=== PATIENT | female | born 1940 | race Caucasian/White ===

== ENCOUNTER 2016-10-13 07:37 | Observation (INO) | payer OTHER, SELFPAY ==
[2016-10-13 07:43] VITALS: TEMP 97; O2SAT 97; BMI 29.7
[2016-10-13 08:23] VITALS: BP 201/87
--- NOTE | 2016-10-13 08:23 | ED PDOC ---
HPI: General Adult Time Seen by Provider: 10/13/16 08:19 Chief Complaint (Nursing): Abdominal Pain Chief Complaint (Provider): abdominal pain History Per: Patient History/Exam Limitations: no limitations Additional Complaint(s): 76yo female comes to the ED with daughter for complaint of diffuse abdominal pain for 3 days. No nausea, vomit, diarrhea, changes in bowel movements, urinary symptoms. No chest pain, shortness of breath. Past Medical History Reviewed: Historical Data, Nursing Documentation, Vital Signs Vital Signs: Last Vital Signs Temp 97 F L 10/13/16 07:42 Pulse 67 10/13/16 14:37 Resp BP 201/87 H 10/13/16 08:23 Pulse Ox 97 10/13/16 14:37 - Medical History PMH: Gastritis, HTN Denies: Chronic Kidney Disease - Surgical History Surgical History: Appendectomy - Family History Family History: States: Unknown Family Hx - Living Arrangements Living Arrangements: With Family - Social History Drugs: Denies - Immunization History Hx Tetanus Toxoid Vaccination: No Hx Influenza Vaccination: No - Home Medications Home Medications: Ambulatory Orders Medication Instructions Recorded Ciprofloxacin HCl [Cipro] 500 mg PO BID #14 tab 11/12/15 Hydrochlorothiazide [HCTZ] 12.5 mg PO DAILY 11/12/15 Omeprazole [Prilosec] 20 mg PO DAILY PRN 11/12/15 Metronidazole [Flagyl] 500 mg PO Q8 #21 tablet 11/14/15 amLODIPine [Norvasc] 5 mg PO DAILY #0 tab 11/14/15 - Allergies Allergies/Adverse Reactions: Allergies Allergy/AdvReac Type Severity Reaction Status Date / Time aspirin Allergy RASH Verified 11/12/15 08:16 lactose Allergy DIARRHEA Verified 11/13/15 09:55 Review of Systems ROS Statement: Except As Marked, All Systems Reviewed And Found Negative Constitutional: Negative for: Fever ENT: Negative for: Ear Pain, Throat Pain Cardiovascular: Negative for: Chest Pain Respiratory: Negative for: Shortness of Breath Gastrointestinal: Positive for: Abdominal Pain. Negative for: Nausea, Vomiting , Diarrhea, Constipation Genitourinary Female: Negative for: Dysuria, Hematuria Musculoskeletal: Negative for: Neck Pain, Shoulder Pain Skin: Negative for: Rash Neurological: Negative for: Weakness, Numbness Physical Exam - Reviewed Nursing Documentation Reviewed: Yes Vital Signs Reviewed: Yes - Physical Exam Appears: Positive for: Well, Non-toxic, No Acute Distress Head Exam: Positive for: ATRAUMATIC, NORMAL INSPECTION, NORMOCEPHALIC Skin: Positive for: Warm, Dry Eye Exam: Positive for: EOMI, PERRL Cardiovascular/Chest: Positive for: Regular Rate, Rhythm Respiratory: Positive for: Normal Breath Sounds. Negative for: Rales, Rhonchi, Wheezing Gastrointestinal/Abdominal: Positive for: Soft, Tenderness (right upper quadrant ). Negative for: Guarding, Rebound Extremity: Positive for: Normal ROM Neurologic/Psych: Positive for: Alert, Oriented - Laboratory Results Result Diagrams: 10/13/16 08:50 10/13/16 08:50 - ECG ECG: Positive for: Interpreted By Me, Viewed By Me ECG Rhythm: Positive for: Sinus Rhythm. Negative for: ST/T Changes Rate: 67 O2 Sat by Pulse Oximetry: 97 (RA) Pulse Ox Interpretation: Normal Medical Decision Making Medical Decision Makin: Patient complaining of isolated abdominal pain. RUQ tenderness on exam. plan: -labs -US abdomen -reassess 1025 US Abdomen impression: Hepatic steatosis and simple cysts in the liver, the largest measures 3.3 cm. 10:25 Patient has persistent pain with negative ultrasound. Labs grossly normal. UA shows small leukoyctes but I do not feel this fully explains presentation. Due to tenderness, recommend CT to evaluate further. Will sign out to Dr. Lopez to follow-up and reeval . Disposition - Clinical Impression Clinical Impression: Abdominal pain in female - Disposition Disposition Time: 15:00 Condition: FAIR Additional Comments - Additional Comments Additional Comments: Scribe Attestation: Documented by Roger Ramos acting as a scribe for Ericka Talbot MD. Scribe Attestation: All medical record entries made by the Scribe were at my direction and personally dictated by me. I have reviewed the chart and agree that the record accurately reflects my personal performance of the history, physical exam, medical decision making, and the department course for this patient. I have also personally directed, reviewed, and agree with the discharge instructions and disposition.
[2016-10-13 08:28] VITALS: PULSE 67
[2016-10-13] MEDS ORDERED: Oxycodone/Acetaminophen 5/325 mg Tab PO STA (08:29)
[2016-10-13] MEDS ORDERED: Oxycodone/Acetaminophen 5/325 mg Tab ONE (08:29)
[2016-10-13 09:02] LABS: BASO % 0.6 % (0.0-2.0); EOS # 0.1 K/uL (0.0-0.7); HEMATOCRIT 41.7 % (34.0-47.0); LYMPH # 1.9 K/uL (1.0-4.3); LYMPH % 29.9 % (20.0-40.0); MEAN CELL VOLUME 91.4 fl (81.0-99.0); MEAN CORPUSCULAR HEMOGLOBIN 30.3 pg (27.0-31.0); MEAN CORPUSCULAR HGB CONC 33.2 g/dL (33.0-37.0); MEAN PLATELET VOLUME 7.6 fl (7.2-11.7); MONO # 0.7 K/uL (0.0-0.8); MONO % 11.5 % (0.0-10.0); NEUT # 3.6 K/uL (1.8-7.0); NRBC % 0.1 % (0.0-0.0); RED CELL DISTRIBUTION WIDTH 13.1 % (11.5-14.5); WHITE BLOOD COUNT 6.4 K/uL (4.8-10.8)
[2016-10-13 09:30] LABS: ALB/GLOB RATIO 1.3 (1.0-2.1); ALKALINE PHOSPHATASE 87 U/L (38-126); ALT/SGPT 23 U/L (9-52); AST/SGOT 26 U/L (14-36); BILIRUBIN,TOTAL 0.4 mg/dl (0.2-1.3); BLOOD UREA NITROGEN 13 mg/dl (7-17); CALCIUM 9.4 mg/dL (8.4-10.2); CARBON DIOXIDE 26 mmol/L (22-30); CHLORIDE 104 mmol/L (98-107); GFR AFRICAN-AMERICAN > 60; GLUCOSE,RANDOM 107 mg/dL (65-105); LIPASE 57 U/L (23-300); MAGNESIUM 1.9 MG/DL (1.6-2.3); PHOSPHOROUS 3.6 mg/dl (2.5-4.5); POTASSIUM 4.3 MMOL/L (3.6-5.0); SODIUM 143 mmol/l (132-148); TOTAL PROTEIN 7.5 G/DL (6.3-8.2)
--- NOTE | 2016-10-13 10:18 | US ---
HISTORY: RUQ abdomianl pain COMPARISON: None. TECHNIQUE: Sonographic evaluation of the abdomen. FINDINGS: LIVER: Measures 13.5 cm. There is diffuse increased echogenicity in the liver with focal sparing adjacent to the gallbladder. There are multiple simple cysts, the largest measures 3.3 cm. No mass. No intrahepatic bile duct dilatation. GALLBLADDER: Unremarkable. No gallstones. COMMON BILE DUCT: Measures 3.3 mm. No stones. No dilatation. PANCREAS: Not visualized. RIGHT KIDNEY: Measures 10.6cm. Normal echogenicity. No calculus, mass, or hydronephrosis. LEFT KIDNEY: Measures 11.3cm. Normal echogenicity. No calculus, mass, or hydronephrosis. SPLEEN: Normal in size and contour. No mass. AORTA: No aneurysmal dilatation. IVC: Unremarkable. OTHER FINDINGS: None. IMPRESSION: Hepatic steatosis and simple cysts in the liver, the largest measures 3.3 cm.
[2016-10-13] MEDS ORDERED: Iohexol 240 (50 ml) ONE (10:23)
[2016-10-13] MEDS ORDERED: Iohexol 240 (50 ml) PO ONE (10:25)
--- NOTE | 2016-10-13 15:04 | ED PDOC ---
- Laboratory Results Result Diagrams: 10/13/16 08:50 10/13/16 08:50 - ECG O2 Sat by Pulse Oximetry: 97 (RA) Medical Decision Making Medical Decision Makin signed over to me by Gerald Talbot MD pending CT. Time: 1750 CT-abdomen results reviewed PROCEDURE: CT Abdomen and Pelvis with contrast HISTORY: abdominal pain COMPARISON: None. TECHNIQUE: Contrast dose: 95 cc of Omni 300 Radiation dose: Total exam DLP = 1008 mGy-cm. This CT exam was performed using one or more of the following dose reduction techniques: Automated exposure control, adjustment of the mA and/or kV according to patient size, and/or use of iterative reconstruction technique. FINDINGS: LOWER THORAX: Unremarkable. LIVER: Unremarkable. No gross lesion or ductal dilatation. A simple cysts is seen in the right lobe of the liver GALLBLADDER AND BILE DUCTS: Unremarkable. PANCREAS: Unremarkable. No gross lesion or ductal dilatation. SPLEEN: Unremarkable. ADRENALS: Unremarkable. No mass. KIDNEYS AND URETERS: Unremarkable. No hydronephrosis. No solid mass. VASCULATURE: Unremarkable. No aortic aneurysm. BOWEL: Unremarkable. No obstruction. No gross mural thickening. APPENDIX: Normal appendix. PERITONEUM: Unremarkable. No free fluid. No free air. LYMPH NODES: Unremarkable. No enlarged lymph nodes. BLADDER: Unremarkable. REPRODUCTIVE: Hysterectomy BONES: No acute fracture. OTHER FINDINGS: None. IMPRESSION: Unremarkable contrast enhanced CT of the abdomen and pelvis. Pt tolerated po and feels better. pt with UTI, given rx macrobid. discussed w family need for close outpt follow up with clinic for better blood pressure control pt denies chest pain short of breath or headache pt will follow up with clinic dx abd pain uti Disposition Counseled Patient/Family Regarding: Studies Performed, Diagnosis, Need For Followup - Clinical Impression Clinical Impression: Abdominal pain in female - POA Present On Arrival: None - Disposition Disposition: Routine/Home Disposition Time: 17:00 Condition: IMPROVED ED OBSERVATION Time of observation admission: 15:03 - Observation admission statement Patient is being placed in observation because:: pending CT Additional Comments - Additional Comments Additional Comments: Scribe Attestation: Documented by Roger Ramos acting as a scribe for Tressa Lopez MD. Scribe Attestation: All medical record entries made by the Scribe were at my direction and personally dictated by me. I have reviewed the chart and agree that the record accurately reflects my personal performance of the history, physical exam, medical decision making, and the department course for this patient. I have also personally directed, reviewed, and agree with the discharge instructions and disposition.
[2016-10-13] MEDS ORDERED: Sodium Chloride 0.9% 50 ML IV ONE (16:37)
[2016-10-13] MEDS ORDERED: Iohexol 300 100 ML IJ ONE (16:37)
--- NOTE | 2016-10-13 17:39 | CT ---
PROCEDURE: CT Abdomen and Pelvis with contrast HISTORY: abdominal pain COMPARISON: None. TECHNIQUE: Contrast dose: 95 cc of Omni 300 Radiation dose: Total exam DLP = 1008 mGy-cm. This CT exam was performed using one or more of the following dose reduction techniques: Automated exposure control, adjustment of the mA and/or kV according to patient size, and/or use of iterative reconstruction technique. FINDINGS: LOWER THORAX: Unremarkable. LIVER: Unremarkable. No gross lesion or ductal dilatation. A simple cysts is seen in the right lobe of the liver GALLBLADDER AND BILE DUCTS: Unremarkable. PANCREAS: Unremarkable. No gross lesion or ductal dilatation. SPLEEN: Unremarkable. ADRENALS: Unremarkable. No mass. KIDNEYS AND URETERS: Unremarkable. No hydronephrosis. No solid mass. VASCULATURE: Unremarkable. No aortic aneurysm. BOWEL: Unremarkable. No obstruction. No gross mural thickening. APPENDIX: Normal appendix. PERITONEUM: Unremarkable. No free fluid. No free air. LYMPH NODES: Unremarkable. No enlarged lymph nodes. BLADDER: Unremarkable. REPRODUCTIVE: Hysterectomy BONES: No acute fracture. OTHER FINDINGS: None. IMPRESSION: Unremarkable contrast enhanced CT of the abdomen and pelvis.
== END 2016-10-13 18:10 | disposition home or self-care (01) ==
LOC: H.ER 07:37 → H.EROBSV 15:03
PROVIDERS: ADMIT Emergency Medicine; ATTEND Emergency Medicine
DX: N39.0 Urinary tract infection, site not specified (principal); I10 Essential (primary) hypertension; K29.70 Gastritis, unspecified, without bleeding; Z88.6 Allergy status to analgesic agent

== ENCOUNTER 2018-10-19 06:36 | Emergency (ER) | payer MEDICAID ==
[2018-10-19 06:36] VITALS: BMI 29.7
--- NOTE | 2018-10-19 07:44 | ED PDOC ---
HPI: Headache Time Seen by Provider: 10/19/18 06:59 Chief Complaint (Nursing): Headache Additional Complaint(s): 78 y/o F with PMHx of HTN is c/o intermittent frontal headache x 8 days, 6/10, not the worst headache of her life accompanied by some dizziness. She denies any hx of head trauma, syncope, numbness, tingling, fever, chills, neck stiffness, nausea or vomitting. PMH: HTN Meds: amlodipine 10mg Allergies: aspirin (nausea & vomitting) Surghx: denies Famhx: noncontributory Sochx: denies EtOH, cigarette or elicit drug use ROS: all points reviewed and are negative unless otherwise mentioned in HPI Past Medical History Vital Signs: Last Vital Signs Temp 98 F 10/19/18 06:59 Pulse 81 10/19/18 06:59 Resp 18 10/19/18 06:59 BP 146/80 10/19/18 06:59 Pulse Ox 96 10/19/18 06:59 - Medical History PMH: Gastritis, HTN Denies: Chronic Kidney Disease - Surgical History Surgical History: Appendectomy - Family History Family History: States: Unknown Family Hx - Social History Alcohol: None Drugs: Denies - Immunization History Hx Tetanus Toxoid Vaccination: No Hx Influenza Vaccination: No - Home Medications Home Medications: Ambulatory Orders Medication Instructions Recorded Hydrochlorothiazide [HCTZ] 12.5 mg PO DAILY 11/12/15 amLODIPine [Norvasc] 5 mg PO DAILY #0 tab 11/14/15 - Allergies Allergies/Adverse Reactions: Allergies Allergy/AdvReac Type Severity Reaction Status Date / Time aspirin Allergy RASH Verified 10/19/18 07:01 lactose Allergy DIARRHEA Verified 10/19/18 07:01 Physical Exam - Physical Exam Appears: Positive for: Non-toxic, No Acute Distress Head Exam: Positive for: ATRAUMATIC, NORMAL INSPECTION Skin: Positive for: Normal Color Eye Exam: Positive for: PERRL ENT: Positive for: Normal ENT Inspection Cardiovascular/Chest: Positive for: Regular Rate, Rhythm. Negative for: Murmur Respiratory: Positive for: Normal Breath Sounds. Negative for: Rhonchi, Wheezing Pulses-Dorsalis Pedis (L): 2+ Pulses-Dorsalis Pedis (R): 2+ Gastrointestinal/Abdominal: Positive for: Bowel Sounds, Soft. 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 Instructions: Headache, Adult Forms: [facility] (Portuguese) - PA / EQUIPMENT DRIVER / Resident Statement MD/DO has reviewed & agrees with the documentation as recorded.
[2018-10-19 08:14] LABS: BASO % 0.6 % (0.0-2.0); EOS # 0.1 K/uL (0.0-0.7); EOS % 1.7 % (0.0-4.0); HEMOGLOBIN 13.6 g/dL (12.0-16.0); LYMPH # 1.7 K/uL (1.0-4.3); LYMPH % 25.8 % (20.0-40.0); MEAN CELL VOLUME 91.3 fl (81.0-99.0); MEAN CORPUSCULAR HEMOGLOBIN 30.9 pg (27.0-31.0); MEAN CORPUSCULAR HGB CONC 33.8 g/dL (33.0-37.0); MEAN PLATELET VOLUME 7.5 fl (7.2-11.7); MONO # 0.7 K/uL (0.0-0.8); MONO % 10.3 % (0.0-10.0); NEUT % 61.6 % (50.0-75.0); NRBC % 0.1 % (0.0-0.0); RBC 4.41 Mil/uL (3.80-5.20); WHITE BLOOD COUNT 6.5 K/uL (4.8-10.8)
[2018-10-19 08:19] LABS: ALB/GLOB RATIO 1.5 (1.0-2.1); ALBUMIN 4.5 g/dL (3.5-5.0); ALT/SGPT 27 U/L (9-52); AST/SGOT 26 U/L (14-36); BLOOD UREA NITROGEN 19 mg/dl (7-17); CALCIUM 9.6 mg/dL (8.4-10.2); GFR NON-AFRICAN AMERICAN > 60
[2018-10-19 09:32] VITALS: BP 139/76; PULSE 68; RESP 19; TEMP 98.8; O2SAT 100
== END 2018-10-19 09:32 | disposition home or self-care (01) ==
LOC: H.ER 06:36
DX: R51 Headache (principal); I10 Essential (primary) hypertension; Z88.6 Allergy status to analgesic agent
CPT/HCPCS: 80053; 85025; 96374; 99283; J1885